=== PATIENT | female | born 1935 | race Caucasian/White ===

== ENCOUNTER 2018-05-24 08:19 | Observation (INO) ==
[2018-05-24 09:15] LABS: Hematocrit (blood only) 36.9 % (37-47); Hemoglobin 12.5 g/dL (12.0-16.0); Mean Corpuscular Hgb Conc 33.9 g/dL (32-36); Mean Corpuscular Volume 95.1 fL (80-100); Mean Platelet Volume 10.2 fL (7.4-10.4); Platelet Count 199 K/uL (130-400); RDW Coefficient of Variation 12.4 % (11.5-14.5); RDW Standard Deviation 42.7 fL (36.4-46.3); Red Blood Count 3.88 M/uL (4.2-5.4); White Blood Count 7.16 K/uL (4.8-10.8)
[2018-05-24 09:23] LABS: Albumin Level 3.8 gm/dl (3.4-5.0); BUN Creatinine Ratio 27.7 (10-20); Calcium 9.1 mg/dl (8.5-10.1); Creatinine Clr Calc Pharmacy 39.2 ml/min; Est GFR (African American) 68.5; Est GFR (Non-African American) 59.1; Potassium 3.4 mmol/L (3.5-5.1)
--- NOTE | 2018-05-24 09:28 | XRay Report ---
XR chest 2V routine CLINICAL HISTORY: Chest pain COMPARISON STUDY: No previous studies for comparison. FINDINGS: Lung volumes are normal. There is no pneumothorax or pleural effusion. Linear left basilar opacity suggests atelectasis. There is no consolidation to suggest pneumonia. There is no evidence fo r pulmonary edema. Cardiomediastinal silhouette is normal. There is a 1 cm right apical linear densit y. IMPRESSION: 1. No acute cardiopulmonary findings. 2. 1 cm right apical linear density. This may reflect scarring however a nonemergent chest CT is mirna mmended to exclude a pulmonary nodule. Electronically signed by: Tyrel Watkins M.D. 05/24/2018 9:27 AM
[2018-05-24 09:33] LABS: Albumin Globulin Ratio 1.1 (0.9-2); Bilirubin,Total 0.5 mg/dl (0.2-1); Globulin 3.5 gm/dl (2.5-4.0); Total Protein 7.3 gm/dl (6.4-8.2); Troponin I 0.036 ng/ml (0-0.045)
[2018-05-24] MEDS ORDERED: ACETAMINOPHEN 500 MG TAB PO STA (10:19)
--- NOTE | 2018-05-24 10:25 | Emergency Department Note ---
ED Visit Note I took a history and examination of the patient and coordinated the patients management with Dr. Little . : Hypertension Qualifiers: Hypertension type: unspecified Qualified Code(s): I10 - Essential (primary) hypertension
--- NOTE | 2018-05-24 11:08 | Emergency Department Note ---
Entered by Nicole Menendez acting as a scribe for Marcial Little MD History of Present Illness General Chief complaint: Chest Pain Time Seen by Provider: 05/24/18 08:24 Source: patient Mode of arrival: EMS History of Present Illness Provider complaint: chest pain Onset (ago): hour(s) 8 Location: chest (center) Radiation: back and extremity (both arms) Pain Consistency: + constant Maximum Pain Intensity: 8 Current Pain Intensity: 3 Quality: + aching Relieved By: + movement (TUMS) Associated symptoms: + other (nausea. Denies: vomiting, fevers, chills, diarrhea, blood in stool, cough, shortness of breath, swelling in legs, palpitations, abnormal taste in throat ) Treatments prior to arrival: other (TUMS, pantoprazole, aspirin) The patient is an 82 year old female who presents to the Emergency Room with complaints of constant chest pain beginning 8 hours ago. She describes this pain as an ache and rates it a 3/10 in severity currently, down from an initial 8/10 in severity. The patient notes the pain is in the center of her chest and radiates down both arms into her biceps, as well as into her back. She reports nausea. The patient denies vomiting, fevers, chills, diarrhea, blood in stool, cough, shortness of breath, swelling in legs, palpitations, or abnormal taste in throat. She states she had a very busy day yesterday, and ate pizza last night, which is unusual for her. The patient states she took TUMS, which seemed to improve her pain, as well as pantoprazole, that did not seem to relieve her pain. She arrives via EMS and was given aspirin and Zofran en route to the ED. Home Medications Home Medications Medication Instructions Recorded Confirmed Type atorvastatin 20 mg PO QPM 05/24/18 05/24/18 History cholecalciferol (vitamin D3) 1,000 unit PO DAILY 05/24/18 05/24/18 History [Vitamin D3] clopidogrel 75 mg PO DAILY 05/24/18 05/24/18 History escitalopram oxalate 10 mg PO QPM 05/24/18 05/24/18 History fexofenadine [Antoinette Allergy] 180 mg PO DAILY PRN 05/24/18 05/24/18 History fluticasone furoate [Flonase 1 spray INTRANASAL DAILY 05/24/18 05/24/18 History Sensimist] isosorbide mononitrate 30 mg PO QPM 05/24/18 05/24/18 History losartan 50 mg PO DAILY 05/24/18 05/24/18 History pantoprazole 20 mg PO DAILY PRN 05/24/18 05/24/18 History Allergies Allergy/AdvReac Type Severity Reaction Status Date / Time No Known Allergies Allergy Mild Unverified 05/24/18 09:15 Past Med/Surg History Medical History Depression (Chronic) Hemiplegia (Chronic) CKD (chronic kidney disease), stage III (Chronic) Dyslipidemia (Chronic) Hypertension (Chronic) GERD (gastroesophageal reflux disease) (Chronic) LBBB (left bundle branch block) (Chronic) History of CVA (cerebrovascular accident) (Chronic) Surgical History S/P CORONA (total abdominal hysterectomy) (Chronic) History of cataract surgery (Chronic) History of tonsillectomy (Chronic) History of nasal surgery (Chronic) History of carpal tunnel surgery of right wrist (Chronic) History of carpal tunnel surgery of left wrist (Chronic) History of sinus surgery (Resolved) Social History Preferred Language: Ukrainian Communication Ability: Effective Beliefs That Will Affect Care: None Current Living Situation: Alone Other Information That Helps Us Care for You: No Feels Safe at Home: Yes Safety Concerns: Feels Safe At This Time Smoking Status: Never smoker Hx Alcohol Use: No Hx Substance Use: No Review of Systems See HPI for pertinent positives & negatives. and A total of 10 systems reviewed and were otherwise negative Physical Exam Vital Signs Vital Signs - 24 hr 05/24/18 08:24 05/24/18 10:25 05/24/18 10:34 Temperature 36.8 C Temperature Source Oral Sepsis Recent Fever Within 48 Hours No Sepsis New/Unexplained Change in Mental Status No Sepsis Action Taken by Nursing No Action Required Pulse Rate 65 Pulse Rate [Apical] 64 Pulse Rhythm Regular Pulse Rhythm [Apical] Regular Pulse Strength [Apical] Normal Respiratory Rate 18 17 Respiratory Effort / Characteristics Non-Labored Spontaneous Non-Labored Spontaneous Non-Labored Spontaneous Respiratory Depth Normal Normal Normal Respiratory Pattern Regular Regular Regular Blood Pressure 192/80 H Blood Pressure [Left Arm] 173/98 H Blood Pressure Mean 117 Blood Pressure Mean [Left Arm] 123 Blood Pressure Position [Left Arm] Pulse Oximetry 96 95 Pulse Oximetry [Left Index Finger] Oxygen Delivery Method Room Air Room Air Room Air Oxygen Delivery Method [Left Index Finger] 05/24/18 12:10 05/24/18 12:30 05/24/18 12:58 Temperature 36.7 C Temperature Source Oral Sepsis Recent Fever Within 48 Hours Sepsis New/Unexplained Change in Mental Status Sepsis Action Taken by Nursing Pulse Rate 66 Pulse Rate [Apical] 58 L Pulse Rhythm Pulse Rhythm [Apical] Regular Pulse Strength [Apical] Normal Respiratory Rate 17 17 Respiratory Effort / Characteristics Non-Labored Spontaneous Respiratory Depth Normal Respiratory Pattern Regular Blood Pressure 169/76 H Blood Pressure [Left Arm] 177/82 H Blood Pressure Mean Blood Pressure Mean [Left Arm] 113 Blood Pressure Position [Left Arm] Lying Pulse Oximetry 93 Pulse Oximetry [Left Index Finger] 97 Oxygen Delivery Method Room Air Room Air Oxygen Delivery Method [Left Index Finger] Room Air GENERAL: Patient is in no acute distress. HEENT: No acute trauma, normocephalic atraumatic, mucous membranes moist, no nasal congestion, no scleral icterus. NECK: No stridor, no adenopathy, no meningismus, trachea is midline. LUNGS: Clear to auscultation bilaterally, no wheeze, no rhonchi, breath sounds equal. HEART: Bradycardic, 2/6 systolic murmur, regular rhythm CHEST: Tender over left anterior chest wall. No rash. ABDOMEN: Soft, nontender, bowel sounds positive, no hernias, no peritonitis. EXTREMITIES: No cyanosis or edema, full range of motion of all the joints without pain or difficulty, no signs for acute trauma. NEUROLOGIC: Oriented x 3, no acute motor or sensory deficits, no focal weakness. SKIN: No rash, no jaundice, no diaphoresis. Course 0823: Past medical records reviewed. The patient was evaluated in room C4 by Dr. Sánchez, the resident under by direction, and a complete history and physical examination were performed. 0901: I evaluated the patient in room C4, and a complete history and physical examination were performed. 0958: Upon reevaluation, the patient is resting. I discussed test results. They verbalized agreement with the treatment plan. 1023: I reviewed the patient's case with Kesha Carrasco PA-C, [facility]. She will evaluate the patient for further management. Consultations Consultation #1: Kesha Carrasco PA-C, [facility] hospitalist. Time: 10:23 Administered Medications Clopidogrel Bisulfate (Plavix) 75 mg PO DAILY SVEN Stop: 06/23/18 12:59 Last Admin: 05/24/18 13:04 Dose: 75 mg Documented by: [id number] Losartan Potassium (Cozaar) 50 mg PO DAILY VSEN Stop: 06/23/18 12:41 Last Admin: 05/24/18 13:05 Dose: 50 mg Documented by: [id number] Pantoprazole Sodium (Protonix) 40 mg PO DAILY SVEN Stop: 06/23/18 12:59 Last Admin: 05/24/18 13:05 Dose: 40 mg Documented by: [id number] Discontinued Medications Acetaminophen (Tylenol) 500 mg PO NOW STA Stop: 05/24/18 10:20 Last Admin: 05/24/18 10:24 Dose: 500 mg Documented by: [id number] Potassium Chloride (Klor-Con M20) 40 meq PO NOW STA Stop: 05/24/18 13:37 Last Admin: 05/24/18 14:01 Dose: 40 meq Documented by: [id number] Medical Decision Making Differential Diagnosis Differential Diagnosis includes: musculoskeletal pain, reflux, angina, IN, pneumonia, pneumothorax, PE, anemia, aortic dissection Medical Records Attestation: I reviewed the patient's medical records. Home Medications Current Medication List: was personally reviewed by me Laboratory Data Attestation: I reviewed the patient's lab results. Result diagrams: 05/24/18 08:30 05/24/18 08:30 Lab Results 05/24/18 05/24/18 05/24/18 Range/Units 08:30 08:30 13:52 WBC 7.16 (4.8-10.8) K/uL RBC 3.88 L (4.2-5.4) M/uL Hgb 12.5 (12.0-16.0) g/dL Hct 36.9 L (37-47) % MCV 95.1 (80-100) fL MCH 32.2 (25-34) pg MCHC 33.9 (32-36) g/dL RDW Std Deviation 42.7 (36.4-46.3) fL RDW Coeff of Lukas 12.4 (11.5-14.5) % Plt Count 199 (130-400) K/uL MPV 10.2 (7.4-10.4) fL PT 10.5 (9.0-12.0) Seconds INR 1.0 (0.9-1.1) Sodium 140 (136-145) mmol/L Potassium 3.4 L (3.5-5.1) mmol/L Chloride 106 (98-107) mmol/L Carbon Dioxide 31 (21-32) mmol/L Anion Gap 3.0 (3-11) BUN 25 H (7-18) mg/dl Creatinine 0.90 (0.6-1.2) mg/dl Est Cr Clr Drug Dosing 39.2 ml/min Est GFR ( Amer) 68.5 Est GFR (Non-Af Amer) 59.1 BUN/Creatinine Ratio 27.7 H (10-20) Glucose 104 H (70-99) mg/dl Calcium 9.1 (8.5-10.1) mg/dl Total Bilirubin 0.5 (0.2-1) mg/dl AST 25 (15-37) U/L ALT 23 (12-78) U/L Alkaline Phosphatase 100 (45-117) U/L Troponin I 0.036 (0-0.045) ng/ml Total Protein 7.3 (6.4-8.2) gm/dl Albumin 3.8 (3.4-5.0) gm/dl Globulin 3.5 (2.5-4.0) gm/dl Albumin/Globulin Ratio 1.1 (0.9-2) TSH 4.970 H (0.300-4.500) uIu/ml Imaging Data Radiologist's Impression: Radiology results as stated below per my review and the radiologist's interpretation: XR chest 2V routine CLINICAL HISTORY: Chest pain COMPARISON STUDY: No previous studies for comparison. FINDINGS: Lung volumes are normal. There is no pneumothorax or pleural effusion. Linear left basilar opacity suggests atelectasis. There is no consolidation to suggest pneumonia. There is no evidence for pulmonary edema. Cardiomediastinal silhouette is normal. There is a 1 cm right apical linear density. IMPRESSION: 1. No acute cardiopulmonary findings. 2. 1 cm right apical linear density. This may reflect scarring however a nonemergent chest CT is recommended to exclude a pulmonary nodule. Electronically signed by: Tyrel Watkins M.D. 05/24/2018 9:27 AM ECG Data Attestation: I personally reviewed and interpreted this ECG as follows: Indication: chest pain Rate (beats per minute): 59 Rhythm: sinus bradycardia Findings: + LBBB; no PVC and no ST elevation Comparison ECG Date: from (06/01/10) Change: the following changes noted (LBBB now present) Blood Pressure Blood Pressure Findings: Elevated blood pressure Blood Pressure Disposition: further management by hospitalist MDM Narrative There is no leukocytosis or concerning anemia. No significant electrolyte abnormality or kidney failure. No hepatitis. TSH mildly elevated at 4.9. EKG shows a sinus rhythm, no acute ischemia. Cardiac enzyme testing x1 is not consistent with acute cardiac injury. Chest film does not show mediastinal widening, pneumonia or pneumothorax. On exam, the patient did have some left- sided reproducible chest pain. The patient had received aspirin prior to arrival. She was given some Tylenol for additional pain control. The patient presents with chest pain which went to her shoulders. The pain is minimal currently. She does have a higher heart score. I do think further cardiac workup is warranted. We did discuss the case with case management and the on-call hospitalist. Hospitalization was felt warranted in this situation. Patient is aware of all her findings. Impression & Plan Precordial chest pain, Hypertension Discharge Plan Visit Data *Final* Discharge Date/Time: 05/24/18 12:10 Chief Complaint: Chest Pain ED Provider: Marcial Little ED Midlevel Provider: Demond Sánchez Discharge Problem: Precordial chest pain, Hypertension Patient Disposition: Admitted As Inpatient Discharge Instructions Interventions: ED Discharge Assessment Last Done: 05/24/18 12:10 Discharge Problem: Hypertension Qualifiers: Hypertension type: unspecified Qualified Code(s): I10 - Essential (primary) hypertension The scribe's documentation has been prepared under my direction and personally reviewed by me in its entirety. I confirm that the note above accurately reflects all work, treatment, procedures, and medical decision making performed by me.
[2018-05-24] MEDS ORDERED: LOSARTAN POTASSIUM 50 MG TAB PO SCH (12:42)
[2018-05-24] MEDS ORDERED: ACETAMINOPHEN 325 MG TAB PO PRN (12:42)
[2018-05-24] MEDS ORDERED: NITROGLYCERIN SL 0.4 MG/TAB TAB SL PRN (12:42)
[2018-05-24] MEDS: CLOPIDOGREL BISULFATE 75 MG TAB PO SCH (13:04)
[2018-05-24] MEDS: PANTOprazole 40 MG TAB PO SCH (13:05)
[2018-05-24] MEDS ORDERED: POTASSIUM CHLORIDE 20 MEQ TABCR PO STA (13:36)
--- NOTE | 2018-05-24 13:50 | History & Physical Report ---
Date of Service May 24, 2018 Assessment & Plan (1) Chest pain: (2) LBBB (left bundle branch block): -Admit to telemetry -Patient presenting from home with reports of left-sided chest pain that began throughout the night -By history, discomfort seems to be secondary to GERD/musculoskeletal/ hypertensive urgency -In the ED, initial troponin negative, EKG demonstrates unchanged LBBB -Continue cycle cardiac enzymes, check resting echo -Treat underlying suspected GERD and elevated BP -Continue Plavix, statin, nitrate, ARB; beta-claudia likely contraindicated secondary to bradycardia (3) Hypertensive urgency: -Upon arrival to the ED, patient's BP 192/80 -Likely secondary to missed medications this morning -Continue home doses of isosorbide and losartan for now, making adjustments as needed (4) GERD (gastroesophageal reflux disease): -Patient utilizes PPI on a as needed basis -Will order PPI daily due to increased symptoms (5) History of CVA (cerebrovascular accident): -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 Patient reports her symptoms began around 1:00 this morning. Patient reports she felt as though she had indigestion. Of note, patient says she had 3 large glasses of iced tea yesterday, pizza for dinner, and a steak sandwich later in the evening. When her symptoms began, she took a dose of Protonix which did not change her symptoms. She describes the pain as being located in left side of her chest and describes the pain as a pressure type feeling. There is radiation of the pain into her left shoulder and upper arm. She reports pain was intermittent and would come and go on its own. No specific causative factors. She reports associated shortness of breath and nausea. No palpitations. She denies diaphoresis. No lightheadedness, dizziness, syncopal events. Reports she otherwise been feeling well recently. No fevers or chills. She denies abdominal pain, vomiting, diarrhea. No urinary symptoms. In the ED, patient's initial troponin is negative and EKG shows a chronic left bundle branch block. She is hypertensive with BP 192/80. She was given a dose of Tylenol. At the time my exam, patient reports she is chest pain-free. Allergies Allergy/AdvReac Type Severity Reaction Status Date / Time No Known Allergies Allergy Mild Unverified 05/24/18 09:15 Home Medications Home Medications Medication Instructions Recorded Confirmed Type atorvastatin 20 mg PO QPM 05/24/18 05/24/18 History cholecalciferol (vitamin D3) 1,000 unit PO DAILY 05/24/18 05/24/18 History [Vitamin D3] clopidogrel 75 mg PO DAILY 05/24/18 05/24/18 History escitalopram oxalate 10 mg PO QPM 05/24/18 05/24/18 History fexofenadine [Antoinette Allergy] 180 mg PO DAILY PRN 05/24/18 05/24/18 History fluticasone furoate [Flonase 1 spray INTRANASAL DAILY 05/24/18 05/24/18 History Sensimist] isosorbide mononitrate 30 mg PO QPM 05/24/18 05/24/18 History losartan 50 mg PO DAILY 05/24/18 05/24/18 History pantoprazole 20 mg PO DAILY PRN 05/24/18 05/24/18 History Past Med/Surg History Medical History Depression (Chronic) Hemiplegia (Chronic) CKD (chronic kidney disease), stage III (Chronic) Dyslipidemia (Chronic) Hypertension (Chronic) GERD (gastroesophageal reflux disease) (Chronic) LBBB (left bundle branch block) (Chronic) History of CVA (cerebrovascular accident) (Chronic) Surgical History S/P CORONA (total abdominal hysterectomy) (Chronic) History of cataract surgery (Chronic) History of tonsillectomy (Chronic) History of nasal surgery (Chronic) History of carpal tunnel surgery of right wrist (Chronic) History of carpal tunnel surgery of left wrist (Chronic) History of sinus surgery (Resolved) Social History Preferred Language: Belarusian Communication Ability: Effective Beliefs That Will Affect Care: None Current Living Situation: Alone Other Information That Helps Us Care for You: No Feels Safe at Home: Yes Safety Concerns: Feels Safe At This Time Smoking Status: Never smoker Hx Alcohol Use: No Hx Substance Use: No Review of Systems ROS per HPI, all other systems reviewed and negative Physical Exam Vital Signs (Past 24 Hours): Last Vital Signs Temp 36.7 C 05/24/18 12:30 Pulse 58 L 05/24/18 12:30 Resp 17 05/24/18 12:30 BP 177/82 H 05/24/18 12:30 Pulse Ox 97 05/24/18 12:58 Constitutional: WD/WN, vitals as above Eyes: PERRL, conjunctivae normal, anicteric sclerae ENMT: external ear and nose normal, oropharynx normal Respiratory: normal respiratory effort, lungs clear to auscultation Cardiovascular: Rate/Rhythm: regular rate and regular rhythm Vessels: normal peripheral pulses Extremities: + edema (Trace edema BLE) Gastrointestinal (Abdomen): normal bowel sounds, soft, nontender, no hepatosplenomegaly Musculoskeletal: Extremities: no cyanosis and no clubbing Right upper extremity paralysis from prior CVA, strength 5/5 left upper extremity and bilateral lower extremities Skin: no rashes, warm and dry Neurologic: PERRL, EOMI, accommodation nl, no face palsy, no dysarthria Psychiatric: A+Ox3, euthymic affect Results & Data Laboratory Results Laboratory Last Values WBC 7.16 K/uL (4.8-10.8) 05/24/18 08:30 RBC 3.88 M/uL (4.2-5.4) L 05/24/18 08:30 Hgb 12.5 g/dL (12.0-16.0) 05/24/18 08:30 Hct 36.9 % (37-47) L 05/24/18 08:30 MCV 95.1 fL (80-100) 05/24/18 08:30 MCH 32.2 pg (25-34) 05/24/18 08:30 MCHC 33.9 g/dL (32-36) 05/24/18 08:30 RDW Std Deviation 42.7 fL (36.4-46.3) 05/24/18 08:30 RDW Coeff of Lukas 12.4 % (11.5-14.5) 05/24/18 08:30 Plt Count 199 K/uL (130-400) 05/24/18 08:30 MPV 10.2 fL (7.4-10.4) 05/24/18 08:30 Sodium 140 mmol/L (136-145) 05/24/18 08:30 Potassium 3.4 mmol/L (3.5-5.1) L 05/24/18 08:30 Chloride 106 mmol/L (98-107) 05/24/18 08:30 Carbon Dioxide 31 mmol/L (21-32) 05/24/18 08:30 Anion Gap 3.0 (3-11) 05/24/18 08:30 BUN 25 mg/dl (7-18) H 05/24/18 08:30 Creatinine 0.90 mg/dl (0.6-1.2) 05/24/18 08:30 Est Cr Clr Drug Dosing 39.2 ml/min 05/24/18 08:30 Est GFR ( Amer) 68.5 05/24/18 08:30 Est GFR (Non-Af Amer) 59.1 05/24/18 08:30 BUN/Creatinine Ratio 27.7 (10-20) H 05/24/18 08:30 Glucose 104 mg/dl (70-99) H 05/24/18 08:30 Calcium 9.1 mg/dl (8.5-10.1) 05/24/18 08:30 Total Bilirubin 0.5 mg/dl (0.2-1) 05/24/18 08:30 AST 25 U/L (15-37) 05/24/18 08:30 ALT 23 U/L (12-78) 05/24/18 08:30 Alkaline Phosphatase 100 U/L (45-117) 05/24/18 08:30 Troponin I 0.036 ng/ml (0-0.045) 05/24/18 08:30 Total Protein 7.3 gm/dl (6.4-8.2) 05/24/18 08:30 Albumin 3.8 gm/dl (3.4-5.0) 05/24/18 08:30 Globulin 3.5 gm/dl (2.5-4.0) 05/24/18 08:30 Albumin/Globulin Ratio 1.1 (0.9-2) 05/24/18 08:30 TSH 4.970 uIu/ml (0.300-4.500) H 05/24/18 08:30 Diagnostic Findings CXR IMPRESSION: 1. No acute cardiopulmonary findings. 2. 1 cm right apical linear density. This may reflect scarring however a nonemergent chest CT is recommended to exclude a pulmonary nodule. Code Status & VTE Plan VTE Prophylaxis Plan VTE Prophylaxis will be ordered: Yes Supervising Physician Co-Signing Physician Notes I have seen and examined the patient with nurse practitioner and agree with the initial assessment and plan as documented by nurse practitioner and would like to update the plans: That this is an 85 year old Female patient who's initial impression of chest pain was thought to be atypical, and perhaps possibly related to indigestion. However, patient had elevation of 2nd troponin from 0.036 to 0.245 and will consult cardiology service for further input. Patient already had echocardiogram completed earlier today prior to the resulting 2nd troponin. Patient is not in respiratory distress and reports that the primary pain which has been located central and below the sternum to be acting like it comes and goes. Patient's initial high blood pressure has normalized and possible that initial hypertensive urgency could have been from missed home medications. Possibly that Elevated Troponins are from initial hypertension. continue to trend troponins and telemetry monitoring Will defer systemic anticoagulation at this time. The repeat EKGs continues to show same left bundle branch block as seen previously. Await cardiology recommendations Continue other health management as described by nurse practioner Patient's code status is DO NOT INTUBATE, but she allows for chest compression or defibrillation in emergencies Patient was admitted by Dr. Reich and nurse practitioner and will be continued to be managed by colleague Dr. Dupree
[2018-05-24 14:20] LABS: Prothrombin Time 10.5 Seconds (9.0-12.0)
[2018-05-24 14:47] LABS: Troponin I 0.245 ng/ml (0-0.045)
--- NOTE | 2018-05-24 15:21 | CT Scan Report ---
CT chest wo con CT DOSE: 277.58 mGy.cm HISTORY: Pulmonary nodule f/u possible pulmonary nodule TECHNIQUE: Multiaxial CT images of the chest were performed without contrast. A dose lowering techni que was utilized adhering to the principles of ALARA. COMPARISON: Chest series 05/24/2018 FINDINGS: Mild fibrotic scarring of the pulmonary apices bilaterally. This appears to account for the findings on routine chest series. No significant apical or parenchymal nodularity is appreciated. Mild bibasilar atelectatic change. No well-defined focal infiltrate. Moderate atelectatic change thor acic aorta. No significant hilar or mediastinal adenopathy. IMPRESSION: 1. No evidence for significant pulmonary nodularity. 2. Mild scattered fibrotic and basilar atelectatic change. 3. Incidental note is made of mild gallbladder distention The above report was generated using voice recognition software. It may contain grammatical, syntax or spelling errors. Electronically signed by: Laron Ahumada M.D. 05/24/2018 3:19 PM
--- NOTE | 2018-05-24 17:06 | Cardiology Consultation ---
Date of Consultation May 24, 2018 Assessment & Plan (1) Chest pain: Her chest pain as described is somewhat atypical and could be related to GERD. Her second troponin was borderline elevated. I would recommend that we do additional troponins. I will reevaluate her in the morning. Her breakfast will be held and we will consider either conservative stress testing versus an invasive approach after the additional troponins are reviewed. I would hold off on heparin for now unless her third troponin comes back in its increased again. (2) LBBB (left bundle branch block): (3) History of CVA (cerebrovascular accident): History of Present Illness Attending Physician: Pablito Abdul MD History of Present Illness This is an 82-year-old female who I last saw in our clinic in 2011. At that time she presented with a left bundle branch block that was newly discovered. She underwent a stress test that was negative. She was then lost to follow-up. I do have records through care everywhere from [facility] in [place]. At that time she was seen for preoperative clearance and risk assessment due to her left bundle branch block. At some point in 2015 she did have a CVA. No other significant cardiovascular history. She was in her usual state of health yesterday. She did a lot of traveling and admits that she did not eat well yesterday. Before going to bed she had a steak sandwich and immediately did not feel well. She has a long history of reflux. Through the night she had chest burning consistent with her previous episodes of GERD. In the morning she felt poorly and decided to come to the emergency department. She has been admitted and her chest discomfort has resolved and she is eating dinner tonight. Her EKG shows her left bundle branch block. Cardiac troponin are borderline elevated at 0.24. Allergies Allergy/AdvReac Type Severity Reaction Status Date / Time No Known Allergies Allergy Mild Unverified 05/24/18 09:15 Home Medications Home Medications Medication Instructions Recorded Confirmed Type atorvastatin 20 mg PO QPM 05/24/18 05/24/18 History cholecalciferol (vitamin D3) 1,000 unit PO DAILY 05/24/18 05/24/18 History [Vitamin D3] clopidogrel 75 mg PO DAILY 05/24/18 05/24/18 History escitalopram oxalate 10 mg PO QPM 05/24/18 05/24/18 History fexofenadine [Antoinette Allergy] 180 mg PO DAILY PRN 05/24/18 05/24/18 History fluticasone furoate [Flonase 1 spray INTRANASAL DAILY 05/24/18 05/24/18 History Sensimist] isosorbide mononitrate 30 mg PO QPM 05/24/18 05/24/18 History losartan 50 mg PO DAILY 05/24/18 05/24/18 History pantoprazole 20 mg PO DAILY PRN 05/24/18 05/24/18 History Patient History Medical History Depression (Chronic) Hemiplegia (Chronic) CKD (chronic kidney disease), stage III (Chronic) Dyslipidemia (Chronic) Hypertension (Chronic) GERD (gastroesophageal reflux disease) (Chronic) LBBB (left bundle branch block) (Chronic) History of CVA (cerebrovascular accident) (Chronic) Surgical History S/P [place] (total abdominal hysterectomy) (Chronic) History of cataract surgery (Chronic) History of tonsillectomy (Chronic) History of nasal surgery (Chronic) History of carpal tunnel surgery of right wrist (Chronic) History of carpal tunnel surgery of left wrist (Chronic) History of sinus surgery (Resolved) Family History Other Family history non-contributory Social History Preferred Language: Occitan Communication Ability: Effective Beliefs That Will Affect Care: None Current Living Situation: Alone Other Information That Helps Us Care for You: No Feels Safe at Home: Yes Safety Concerns: Feels Safe At This Time Smoking Status: Never smoker Hx Alcohol Use: No Hx Substance Use: No Review of Systems Review of Systems: See HPI for pertinent positives. All other 10 point review of systems are negative. Physical Exam Vital Signs (Past 24 Hours): Last Vital Signs Temp 36.4 C L 05/24/18 15:22 Pulse 65 05/24/18 15:22 Resp 16 05/24/18 15:22 BP 134/59 L 05/24/18 15:22 Pulse Ox 92 05/24/18 15:22 Physical Exam: General: no acute distress and stated age Head: normocephalic, no masses, lesions, tenderness or abnormalities Eyes: conjunctiva are pink and non-injected, sclera clear Neck: supple, no adenopathy, no bruits, normal jugular venous pulse, no hepatojugular reflux Chest: normal shape and normal respiratory effort Lungs: clear to auscultation and percussion Cardiac Exam: - regular rate & rhythm, no murmurs gallops or rubs - normal S1, normal S2 Pulses: 2(+) throughout Abdomen: abdomen soft, non-tender, no abnormal masses and no hepatosplenomegaly Musculoskeletal: no gait disturbance, no joint inflammation, no deforming arthritis Extremities: no edema and no cyanosis Neuro: grossly normal exam Results & Data Laboratory Results Laboratory Results - last 24 hr 05/24/18 05/24/18 05/24/18 08:30 08:30 13:52 WBC 7.16 RBC 3.88 L Hgb 12.5 Hct 36.9 L MCV 95.1 MCH 32.2 MCHC 33.9 RDW Std Deviation 42.7 RDW Coeff of Lukas 12.4 Plt Count 199 MPV 10.2 PT INR Sodium 140 Potassium 3.4 L Chloride 106 Carbon Dioxide 31 Anion Gap 3.0 BUN 25 H Creatinine 0.90 Est Cr Clr Drug Dosing 39.2 Est GFR ( Amer) 68.5 Est GFR (Non-Af Amer) 59.1 BUN/Creatinine Ratio 27.7 H Glucose 104 H Calcium 9.1 Magnesium 2.0 Total Bilirubin 0.5 AST 25 ALT 23 Alkaline Phosphatase 100 Troponin I 0.036 0.245 H* Total Protein 7.3 Albumin 3.8 Globulin 3.5 Albumin/Globulin Ratio 1.1 TSH 4.970 H Thyroxine (T4) 05/24/18 05/24/18 13:52 13:52 WBC RBC Hgb Hct MCV MCH MCHC RDW Std Deviation RDW Coeff of Lukas Plt Count MPV PT 10.5 INR 1.0 Sodium Potassium Chloride Carbon Dioxide Anion Gap BUN Creatinine Est Cr Clr Drug Dosing Est GFR ( Amer) Est GFR (Non-Af Amer) BUN/Creatinine Ratio Glucose Calcium Magnesium Total Bilirubin AST ALT Alkaline Phosphatase Troponin I Total Protein Albumin Globulin Albumin/Globulin Ratio TSH Thyroxine (T4) 8.1 Medications Administered Current Inpatient Medications Acetaminophen (Tylenol) 650 mg PO Q4H PRN PRN Reason: Pain or Fever Stop: 06/23/18 12:41 Atorvastatin Calcium (Lipitor) 20 mg PO QPM [facility] Stop: 06/23/18 20:59 Clopidogrel Bisulfate (Plavix) 75 mg PO DAILY [facility] Stop: 06/23/18 12:59 Last Admin: 05/24/18 13:04 Dose: 75 mg Documented by: Escitalopram Oxalate (Lexapro) 10 mg PO QPM [facility] Stop: 06/23/18 20:59 Heparin Sodium (Porcine) (Heparin Sodium (Porcine)) 5,000 units SQ Q8 [facility] Stop: 06/23/18 21:59 Isosorbide Mononitrate (Imdur Extended Rel) 30 mg PO QPM [facility] Stop: 06/23/18 20:59 Losartan Potassium (Cozaar) 50 mg PO DAILY [facility] Stop: 06/23/18 12:41 Last Admin: 05/24/18 13:05 Dose: 50 mg Documented by: Nitroglycerin (Nitrostat) 0.4 mg SL UD PRN PRN Reason: Chest Pain Stop: 06/23/18 12:41 Pantoprazole Sodium (Protonix) 40 mg PO DAILY [facility] Stop: 06/23/18 12:59 Last Admin: 05/24/18 13:05 Dose: 40 mg Documented by: Vitamin D (Vitamin D3) 1,000 units PO DAILY [facility] Stop: 06/24/18 08:59
[2018-05-24] MEDS ORDERED: Heparin Adult STANDARD Wt-Based Dextrose 5% 25,000 units/500 mL IV SCH (20:00)
[2018-05-24] MEDS ORDERED: HEPARIN IV BOLUS 4,000 UNITS in SYRINGE 0 ML IV ONE (20:15)
[2018-05-24] MEDS: ESCITALOPRAM OXALATE 10 MG TAB PO SCH (20:38)
[2018-05-24] MEDS: ATORVASTATIN 20 MG TAB PO SCH (20:38)
[2018-05-24] MEDS: ISOSORBIDE MONO EXTENDED REL 30 MG TABCR PO SCH (20:39)
[2018-05-24 20:48] LABS: Partial Thromboplastin Time 26.5 Seconds (21.0-31.0)
[2018-05-24] MEDS ORDERED: HEPARIN SOD 5,000 UNIT/0.5 ML VIAL SQ SCH (22:00)
[2018-05-25] MEDS: SENNA 8.6 MG TAB PO SCH ×2 (00:45→20:14)
[2018-05-25 03:22] LABS: Hematocrit (blood only) 35.2 % (37-47); Hemoglobin 11.6 g/dL (12.0-16.0); Mean Platelet Volume 10.1 fL (7.4-10.4); Platelet Count 192 K/uL (130-400); RDW Coefficient of Variation 12.6 % (11.5-14.5); RDW Standard Deviation 44.6 fL (36.4-46.3); Red Blood Count 3.63 M/uL (4.2-5.4); White Blood Count 7.42 K/uL (4.8-10.8)
[2018-05-25 03:40] LABS: Calcium 8.6 mg/dl (8.5-10.1); Creatinine Clr Calc Pharmacy 24.3 ml/min; Est GFR (African American) 38.5; Est GFR (Non-African American) 33.2; Potassium 4.2 mmol/L (3.5-5.1); Troponin I 5.09 ng/ml (0-0.045)
[2018-05-25 03:47] LABS: Partial Thromboplastin Ratio > 5.1
[2018-05-25 03:51] LABS: Partial Thromboplastin Time > 139.0 Seconds (21.0-31.0)
[2018-05-25 04:54] LABS: Partial Thromboplastin Time 108.5 Seconds (21.0-31.0)
[2018-05-25 06:12] LABS: Partial Thromboplastin Ratio 2.2
[2018-05-25 06:21] LABS: Partial Thromboplastin Time 60.7 Seconds (21.0-31.0)
[2018-05-25] MEDS ORDERED: SODIUM CHLORIDE 0.9% 1000ML 1,000 ML IV ONE (08:25)
--- NOTE | 2018-05-25 08:38 | Cardiology Progress Note ---
Date of Service May 25, 2018 Assessment & Plan (1) NSTEMI (non-ST elevated myocardial infarction): The patient's troponin have peaked at 5. I discussed the option of a cardiac catheterization with her. I explained the risk benefit and intent of the procedure including the potential for a catheter-based intervention. Patient is willing to proceed and we will start an IV now to hydrate her. The cardiac catheterization will be performed later this morning. (2) Ischemic cardiomyopathy: Subjective Patient had an uneventful night no additional chest pain. Her cardiac markers have elevated and her troponin is now peaked at 5. Physical Exam Vital Signs (Past 24 Hours): Last Vital Signs Temp 36.8 C 05/25/18 07:41 Pulse 55 L 05/25/18 07:41 Resp 14 05/25/18 07:41 BP 151/66 H 05/25/18 07:41 Pulse Ox 96 05/25/18 07:41 Physical Exam: General: no acute distress and stated age Head: normocephalic, no masses, lesions, tenderness or abnormalities Eyes: conjunctiva are pink and non-injected, sclera clear Neck: supple, no adenopathy, no bruits, normal jugular venous pulse, no hepatojugular reflux Chest: normal shape and normal respiratory effort Lungs: clear to auscultation and percussion Cardiac Exam: - regular rate & rhythm, no murmurs gallops or rubs - normal S1, normal S2 Pulses: 2(+) throughout Abdomen: abdomen soft, non-tender, no abnormal masses and no hepatosplenomegaly Musculoskeletal: no gait disturbance, no joint inflammation, no deforming arthritis Extremities: no edema and no cyanosis Neuro: grossly normal exam Results & Data Laboratory Results Laboratory Results - last 24 hr 05/24/18 05/24/18 05/24/18 08:30 08:30 13:52 WBC 7.16 RBC 3.88 L Hgb 12.5 Hct 36.9 L MCV 95.1 MCH 32.2 MCHC 33.9 RDW Std Deviation 42.7 RDW Coeff of Lukas 12.4 Plt Count 199 MPV 10.2 PT INR APTT PTT Ratio Sodium 140 Potassium 3.4 L Chloride 106 Carbon Dioxide 31 Anion Gap 3.0 BUN 25 H Creatinine 0.90 Est Cr Clr Drug Dosing 39.2 Est GFR ( Amer) 68.5 Est GFR (Non-Af Amer) 59.1 BUN/Creatinine Ratio 27.7 H Glucose 104 H Calcium 9.1 Magnesium 2.0 Total Bilirubin 0.5 AST 25 ALT 23 Alkaline Phosphatase 100 Troponin I 0.036 0.245 H* Total Protein 7.3 Albumin 3.8 Globulin 3.5 Albumin/Globulin Ratio 1.1 TSH 4.970 H Thyroxine (T4) 05/24/18 05/24/18 05/24/18 13:52 13:52 17:26 WBC RBC Hgb Hct MCV MCH MCHC RDW Std Deviation RDW Coeff of Lukas Plt Count MPV PT 10.5 INR 1.0 APTT PTT Ratio Sodium Potassium Chloride Carbon Dioxide Anion Gap BUN Creatinine Est Cr Clr Drug Dosing Est GFR ( Amer) Est GFR (Non-Af Amer) BUN/Creatinine Ratio Glucose Calcium Magnesium Total Bilirubin AST ALT Alkaline Phosphatase Troponin I 1.060 H* Total Protein Albumin Globulin Albumin/Globulin Ratio TSH Thyroxine (T4) 8.1 05/24/18 05/24/18 05/25/18 20:21 20:21 02:36 WBC 7.42 RBC 3.63 L Hgb 11.6 L Hct 35.2 L MCV 97.0 MCH 32.0 MCHC 33.0 RDW Std Deviation 44.6 RDW Coeff of Lukas 12.6 Plt Count 192 MPV 10.1 PT INR APTT 26.5 PTT Ratio 1.0 Sodium Potassium Chloride Carbon Dioxide Anion Gap BUN Creatinine Est Cr Clr Drug Dosing Est GFR ( Amer) Est GFR (Non-Af Amer) BUN/Creatinine Ratio Glucose Calcium Magnesium Total Bilirubin AST ALT Alkaline Phosphatase Troponin I 2.520 H* Total Protein Albumin Globulin Albumin/Globulin Ratio TSH Thyroxine (T4) 05/25/18 05/25/18 05/25/18 02:36 02:36 04:21 WBC RBC Hgb Hct MCV MCH MCHC RDW Std Deviation RDW Coeff of Lukas Plt Count MPV PT INR APTT > 139.0 H* 108.5 H* PTT Ratio > 5.1 4.0 Sodium 139 Potassium 4.2 D Chloride 108 H Carbon Dioxide 28 Anion Gap 3.0 BUN 35 H Creatinine 1.45 H D Est Cr Clr Drug Dosing 24.3 Est GFR ( Amer) 38.5 Est GFR (Non-Af Amer) 33.2 BUN/Creatinine Ratio 24.0 H Glucose 105 H Calcium 8.6 Magnesium Total Bilirubin AST ALT Alkaline Phosphatase Troponin I 5.090 H* Total Protein Albumin Globulin Albumin/Globulin Ratio TSH Thyroxine (T4) 05/25/18 05:26 WBC RBC Hgb Hct MCV MCH MCHC RDW Std Deviation RDW Coeff of Lukas Plt Count MPV PT INR APTT 60.7 H* PTT Ratio 2.2 Sodium Potassium Chloride Carbon Dioxide Anion Gap BUN Creatinine Est Cr Clr Drug Dosing Est GFR ( Amer) Est GFR (Non-Af Amer) BUN/Creatinine Ratio Glucose Calcium Magnesium Total Bilirubin AST ALT Alkaline Phosphatase Troponin I Total Protein Albumin Globulin Albumin/Globulin Ratio TSH Thyroxine (T4) Medications Administered Current Inpatient Medications Acetaminophen (Tylenol) 650 mg PO Q4H PRN PRN Reason: Pain or Fever Stop: 06/23/18 12:41 Atorvastatin Calcium (Lipitor) 20 mg PO QPM [facility] Stop: 06/23/18 20:59 Last Admin: 05/24/18 20:38 Dose: 20 mg Documented by: Clopidogrel Bisulfate (Plavix) 75 mg PO DAILY [facility] Stop: 06/23/18 12:59 Last Admin: 05/24/18 13:04 Dose: 75 mg Documented by: Escitalopram Oxalate (Lexapro) 10 mg PO QPM [facility] Stop: 06/23/18 20:59 Last Admin: 05/24/18 20:38 Dose: 10 mg Documented by: Heparin Sodium/Dextrose (Heparin Sodium/Dextrose) 25,000 units in 500 mls @ 17 mls/hr IV .Q24H [facility]EN; Protocol Stop: 06/23/18 19:59 Last Titration: 05/25/18 07:32 Dose: 850 units/hr, 17 mls/hr Documented by: Sodium Chloride (Nss 1000ml) 1,000 mls @ 75 mls/hr IV .[id number] ONE Stop: 05/25/18 21:44 Sodium Chloride (Nss 1000ml) 1,000 mls @ 1 mls/hr IV .Q24H [facility] Stop: 06/24/18 08:44 Isosorbide Mononitrate (Imdur Extended Rel) 30 mg PO QPM [facility] Stop: 06/23/18 20:59 Last Admin: 05/24/18 20:39 Dose: 30 mg Documented by: Losartan Potassium (Cozaar) 50 mg PO DAILY [facility] Stop: 06/23/18 12:41 Last Admin: 05/24/18 13:05 Dose: 50 mg Documented by: Nitroglycerin (Nitrostat) 0.4 mg [facility] PRN PRN Reason: Chest Pain Stop: 06/23/18 12:41 Pantoprazole Sodium (Protonix) 40 mg PO DAILY [facility] Stop: 06/23/18 12:59 Last Admin: 05/24/18 13:05 Dose: 40 mg Documented by: Sennosides (Senokot) 17.2 mg PO HS [facility] Stop: 06/23/18 23:29 Last Admin: 05/25/18 00:45 Dose: 17.2 mg Documented by: Vitamin D (Vitamin D3) 1,000 units PO DAILY [facility] Stop: 06/24/18 08:59
[2018-05-25] MEDS ORDERED: SODIUM CHLORIDE 0.9% 1000ML 1,000 ML IV SCH (09:30)
[2018-05-25] MEDS ORDERED: MIDAZOLAM HCL 1 MG/ML 2ML VIAL ONE (10:53)
[2018-05-25] MEDS ORDERED: HEPARIN (PORCINE) 1000 UNIT/ML 10 ML (CATH LAB USE ONLY) ONE (10:53)
[2018-05-25] MEDS ORDERED: NITROGLYCERIN/D5W 100MCG/ML 20ML SYR ONE (10:53)
[2018-05-25] MEDS ORDERED: fentaNYL citrate 100 MCG/2 ML VIAL ONE (10:53)
[2018-05-25] MEDS ORDERED: NiCARDipine HCL INJ 2.5 MG/ML 10 ML AMP ONE (10:53)
--- NOTE | 2018-05-25 12:18 | Cardiac Catheterization ---
Date of Service May 25, 2018 Cardiac Cath Report Cardiac Cath Report Procedure: 1. Coronary angiography History: This is an elderly 82-year-old female who presented with symptoms that she thought was related to her esophageal reflux. Her cardiac troponins however elevated and peaked at 5. Procedure summary: After informed consent was obtained patient was taken the cardiac catheterization lab where she was prepped and draped in the usual manner for right transfemoral approach. Preformed 5 Kiswahili diagnostic catheters were utilized for the coronary angiograms. Following the procedure and arteriogram of the femoral artery indicated the substantial band into the pelvis. A minx device was attempted but would not advance beyond the band and therefore manual pressure was held after sheath removal. Patient then returned to her room in stable condition. ACC data: AUC score 9 Start time 11:27 AM End time 11:53 AM Opening aortic pressure 143/66 LV pressurevalve not crossed Closing aortic pressure 149/72 Sedation Versed 1 mg IV IV fluid 50 cc normal saline Contrast 100 cc VISI Fluoroscopy time 8.5 minutes Radiation 849 mGy DAP [id number] cGy Right dominant system Coronary angiography: Selective injections of the right coronary artery reveal a large barnett's crook. The right coronary artery is dominant. The right coronary artery smooth in appearance widely patent and within normal limits. Selective injections of the left coronary artery reveal a 20% shelflike lesion in the mid left main trunk. There is no dampening of the catheter and good flow past the area into the left coronary arteries as well as retrograde flow back into the aorta indicating the lesion not to be hemodynamically significant. The left circumflex artery consists of 2 large marginal branches that bifurcates several times each. The left circumflex system is smooth appearance widely patent and within normal limits. The LAD gives off several large diagonal branches and a large first septal software engineer web applications. The LAD system has minor luminal irregularities but is widely patent. Summary: The patient has widely patent coronary anatomy except the left main trunk has a non-hemodynamically significant shelf like lesion with estimated stenosis to be 10-20%. The remainder of the coronary anatomy is widely patent. Recommendations: I believe the shelflike area in the left main trunk could have been a small dissection with embolization resulting in her discomfort and elevation in troponin. I do not believe that this is a hemodynamically significant lesion and I believe it may be treated medically especially in this elderly woman.
[2018-05-25] MEDS: ASPIRIN 81 MG ECTAB PO SCH (12:46)
[2018-05-25] MEDS: PANTOprazole 40 MG TAB PO SCH (12:46)
[2018-05-25] MEDS: CHOLECALCIFEROL 1,000 UNITS TAB PO SCH (12:46)
[2018-05-25] MEDS: CLOPIDOGREL BISULFATE 75 MG TAB PO SCH (12:46)
--- NOTE | 2018-05-25 16:59 | Hospitalist Progress Note ---
Date of Service May 25, 2018 Assessment & Plan (1) Chest pain: (2) LBBB (left bundle branch block): Atypical Chest Pain Non Obstructive Coronary Artery disease Hypertensive Urgency S/P Cath:Widely patent coronary anatomy except the left main trunk has a non- hemodynamically significant shelf like lesion with estimated stenosis to be 10- 20%. The remainder of the coronary anatomy is widely patent. Elevated Troponin EKG:Unchanged LBBB ECHO: EF:45-50%, Mild AR, Mild MR, TR IV heparin discontinued Medical Management Started on Aspirin Continue Plavix, statin, nitrate Hold ARB due to DELFINO No beta-claudia due to bradycardia Appreciate Cardiology Input DELFINO: Hold ARB Gentle IV fluids Avoid Nephrotoxic agents as able Monitor renal function (3) Hypertensive urgency: Missed Meds at time of admission Resume Home meds Monitor BP (4) GERD (gastroesophageal reflux disease): Continue PPI (5) History of CVA (cerebrovascular accident): Stable Chronic right upper extremity weakness Continue Aspirin, Plavix, statin (6) Depression: Continue escitalopram (7) DVT prophylaxis: SCDs for now Subjective Patient is seen and examined at bedside Doing better today Denies chest pain, SOB, dizziness, nausea Planned for Cardiac Cath today Cr slightly elevated Physical Exam Vital Signs (Past 24 Hours): Last Vital Signs Temp 37.0 C 05/25/18 15:34 Pulse 62 05/25/18 15:34 Resp 18 05/25/18 15:34 BP 171/88 H 05/25/18 15:34 Pulse Ox 96 05/25/18 15:34 Physical Exam: Physical Exam: Vitals signs as noted above General Appearance:Moderately built and nourished, no apparent distress Head: normocephalic, Atraumatic Eyes: normal inspection, EOMI Neck: supple, Trachea midline Respiratory/Chest: Normal breath sounds, CTA Cardiovascular: S1, S2, No murmur Abdomen/GI:Soft, Non tender, Bowel sounds present Extremities/Musculoskelatal:normal inspection, no edema Neurologic/Psych:AAOX3, grossly no focal neurological deficits Skin: normal color, warm Results & Data Laboratory Results Short CBC 05/25/18 Range/Units 02:36 WBC 7.42 (4.8-10.8) K/uL Hgb 11.6 L (12.0-16.0) g/dL Hct 35.2 L (37-47) % Plt Count 192 (130-400) K/uL BMP 05/25/18 02:36 Sodium 139 Potassium 4.2 D Chloride 108 H Carbon Dioxide 28 BUN 35 H Creatinine 1.45 H D Glucose 105 H Calcium 8.6 Cardiac Enzymes 05/24/18 05/24/18 05/25/18 Range/Units 17:26 20:21 02:36 Troponin I 1.060 H* 2.520 H* 5.090 H* (0-0.045) ng/ml
[2018-05-25] MEDS: ATORVASTATIN 20 MG TAB PO SCH (20:13)
[2018-05-25] MEDS: ESCITALOPRAM OXALATE 10 MG TAB PO SCH (20:13)
[2018-05-25] MEDS: ISOSORBIDE MONO EXTENDED REL 30 MG TABCR PO SCH (20:14)
[2018-05-26 07:10] LABS: Hematocrit (blood only) 34.6 % (37-47); Hemoglobin 11.6 g/dL (12.0-16.0); Mean Corpuscular Hgb Conc 33.5 g/dL (32-36); Mean Corpuscular Volume 95.1 fL (80-100); Platelet Count 165 K/uL (130-400); RDW Coefficient of Variation 12.4 % (11.5-14.5); RDW Standard Deviation 43.2 fL (36.4-46.3); Red Blood Count 3.64 M/uL (4.2-5.4); White Blood Count 5.77 K/uL (4.8-10.8)
[2018-05-26 07:47] LABS: BUN Creatinine Ratio 23.1 (10-20); Calcium 8.6 mg/dl (8.5-10.1); Creatinine Clr Calc Pharmacy 33.9 ml/min; Est GFR (African American) 57.5; Est GFR (Non-African American) 49.6; Potassium 3.9 mmol/L (3.5-5.1)
--- NOTE | 2018-05-26 09:06 | Cardiology Progress Note ---
Date of Service May 26, 2018 Assessment & Plan (1) NSTEMI (non-ST elevated myocardial infarction): The patient was admitted with a non-STEMI with the troponin peaking at 5. On presentation the patient felt that she was having GERD-like symptoms which lasted most of the night after she ate a steak sandwich before going to bed. She has had a long-standing history of GERD and reflux. She takes a PPI and understands that she cannot eat late at night and needs to either stay up or sit up until her food digest. She had a little this discomfort last night when she laid down. I do not believe that this was cardiac pain. Her cardiac catheterization yesterday actually showed impressively widely patent arteries for her age. The left main trunk however, did have a small nonhemodynamically significant shelf that may have represented a small spontaneous dissection of the plaque which then had embolization resulting in her non-STEMI. I do not think she would benefit from coronary intervention or bypass. I think medical treatment is indicated with guideline directed medication including dual antiplatelet therapy, statin and beta-claudia. I will ambulate her today and if she has a good day we could consider discharging her tomorrow. I am also going to make her Protonix twice daily. (2) Ischemic cardiomyopathy: Subjective The patient had a stable night however she states that after she laid down she got her usual GERD-like symptoms. She has had these for very long time and usually she will sit up until her food digests and the discomfort dissipates. She has had no chest pain with activity or shortness of breath. She wants to be discharged home. She states she would be more comfortable at home and her daughter will be with her. Physical Exam Vital Signs (Past 24 Hours): Last Vital Signs Temp 36.6 C 05/26/18 06:53 Pulse 74 05/26/18 06:53 Resp 18 05/26/18 06:53 BP 136/60 05/26/18 06:53 Pulse Ox 94 05/26/18 06:53 Physical Exam: General: no acute distress and stated age Head: normocephalic, no masses, lesions, tenderness or abnormalities Eyes: conjunctiva are pink and non-injected, sclera clear Neck: supple, no adenopathy, no bruits, normal jugular venous pulse, no hepatojugular reflux Chest: normal shape and normal respiratory effort Lungs: clear to auscultation and percussion Cardiac Exam: - regular rate & rhythm, no murmurs gallops or rubs - normal S1, normal S2 Pulses: 2(+) throughout Abdomen: abdomen soft, non-tender, no abnormal masses and no hepatosplenomegaly Musculoskeletal: no gait disturbance, no joint inflammation, no deforming arthritis Extremities: no edema and no cyanosis Neuro: grossly normal exam Results & Data Laboratory Results Laboratory Results - last 24 hr 05/26/18 05/26/18 06:47 06:47 WBC 5.77 RBC 3.64 L Hgb 11.6 L Hct 34.6 L MCV 95.1 MCH 31.9 MCHC 33.5 RDW Std Deviation 43.2 RDW Coeff of Lukas 12.4 Plt Count 165 MPV 10.0 Sodium 138 Potassium 3.9 Chloride 107 Carbon Dioxide 28 Anion Gap 3.0 BUN 24 H Creatinine 1.04 Est Cr Clr Drug Dosing 33.9 Est GFR ( Amer) 57.5 Est GFR (Non-Af Amer) 49.6 BUN/Creatinine Ratio 23.1 H Glucose 90 Calcium 8.6 Medications Administered Current Inpatient Medications Acetaminophen (Tylenol) 650 mg PO Q4H PRN PRN Reason: Pain or Fever Stop: 06/23/18 12:41 Aspirin (Ecotrin Ectab) 81 mg PO DAILY [facility] Stop: 06/24/18 12:14 Last Admin: 05/25/18 12:46 Dose: 81 mg Documented by: Atorvastatin Calcium (Lipitor) 20 mg PO QPM [facility] Stop: 06/23/18 20:59 Last Admin: 05/25/18 20:13 Dose: 20 mg Documented by: Clopidogrel Bisulfate (Plavix) 75 mg PO DAILY [facility] Stop: 06/23/18 12:59 Last Admin: 05/25/18 12:46 Dose: 75 mg Documented by: Escitalopram Oxalate (Lexapro) 10 mg PO QPM [facility] Stop: 06/23/18 20:59 Last Admin: 05/25/18 20:13 Dose: 10 mg Documented by: Isosorbide Mononitrate (Imdur Extended Rel) 30 mg PO QPM [facility] Stop: 06/23/18 20:59 Last Admin: 05/25/18 20:14 Dose: 30 mg Documented by: Losartan Potassium (Cozaar) 25 mg PO QAM [facility] Stop: 06/25/18 09:14 Nitroglycerin (Nitrostat) 0.4 mg SL UD PRN PRN Reason: Chest Pain Stop: 06/23/18 12:41 Pantoprazole Sodium (Protonix) 40 mg PO DAILY [facility] Stop: 06/23/18 12:59 Last Admin: 05/25/18 12:46 Dose: 40 mg Documented by: Sennosides (Senokot) 17.2 mg PO HS [facility] Stop: 06/23/18 23:29 Last Admin: 05/25/18 20:14 Dose: 17.2 mg Documented by: Vitamin D (Vitamin D3) 1,000 units PO DAILY [facility] Stop: 06/24/18 08:59 Last Admin: 05/25/18 12:46 Dose: 1,000 units Documented by:
[2018-05-26] MEDS: LOSARTAN POTASSIUM 25 MG TAB PO SCH (09:54)
[2018-05-26] MEDS: PANTOprazole 40 MG TAB PO SCH ×3 (09:54→20:55)
[2018-05-26] MEDS: CLOPIDOGREL BISULFATE 75 MG TAB PO SCH (09:55)
[2018-05-26] MEDS: ASPIRIN 81 MG ECTAB PO SCH (09:55)
[2018-05-26] MEDS: CHOLECALCIFEROL 1,000 UNITS TAB PO SCH (09:55)
[2018-05-26] MEDS ORDERED: Nursing to Pharmacy Communication ONE (11:38)
[2018-05-26] MEDS ORDERED: POLYETHYLENE (MIRALAX) 17 GM PACK PO PRN (11:40)
[2018-05-26] MEDS ORDERED: BISACODYL 10 MG SUPP PR PRN (11:40)
[2018-05-26] MEDS ORDERED: POLYETHYLENE (MIRALAX) 17 GM PACK PO ONE (11:45)
--- NOTE | 2018-05-26 16:12 | Hospitalist Progress Note ---
Date of Service May 26, 2018 Assessment & Plan (1) Chest pain: (2) LBBB (left bundle branch block): NSTEMI Hypertensive Urgency S/P Cath:Widely patent coronary anatomy except the left main trunk has a non- hemodynamically significant shelf like lesion with estimated stenosis to be 10-20%. The remainder of the coronary anatomy is widely patent. Likely small shell like lesion--Spontaneous dissection of the plaque which could have embolized causing NSTEMI Elevated Troponin EKG:Unchanged LBBB ECHO: EF:45-50%, Mild AR, Mild MR, TR IV heparin discontinued Medical Management Started on Aspirin Continue Plavix, statin, nitrate, losartan No beta-claudia due to bradycardia Appreciate Cardiology Input Continue current meds DELFINO: Resolved Received gentle IV fluids Avoid Nephrotoxic agents as able Monitor renal function (3) Hypertensive urgency: Missed Meds at time of admission BP improved Continue usual meds Monitor BP (4) GERD (gastroesophageal reflux disease): Continue PPI (5) History of CVA (cerebrovascular accident): Stable Chronic right upper extremity weakness Continue Aspirin, Plavix, statin (6) Depression: Continue escitalopram (7) DVT prophylaxis: SCDs for now Disposition: Plan to discharge home when stable Subjective Patient is seen and examined at bedside Reports GERD like symptoms overnight Also states having constipation Denies chest pain, SOB, dizziness, nausea Prefers to be discharged Physical Exam Vital Signs (Past 24 Hours): Last Vital Signs Temp 37 C 05/26/18 14:32 Pulse 63 05/26/18 14:32 Resp 18 05/26/18 14:32 BP 138/74 05/26/18 14:32 Pulse Ox 95 05/26/18 14:32 Physical Exam: Physical Exam: Vitals signs as noted above General Appearance:Moderately built and nourished, no apparent distress Head: normocephalic, Atraumatic Eyes: normal inspection, EOMI Neck: supple, Trachea midline Respiratory/Chest: Normal breath sounds, CTA Cardiovascular: S1, S2, No murmur Abdomen/GI:Soft, Non tender, Bowel sounds present Extremities/Musculoskelatal:normal inspection, no edema Neurologic/Psych:AAOX3, grossly no focal neurological deficits Skin: normal color, warm Results & Data Laboratory Results Short CBC 05/26/18 Range/Units 06:47 WBC 5.77 (4.8-10.8) K/uL Hgb 11.6 L (12.0-16.0) g/dL Hct 34.6 L (37-47) % Plt Count 165 (130-400) K/uL BMP 05/26/18 06:47 Sodium 138 Potassium 3.9 Chloride 107 Carbon Dioxide 28 BUN 24 H Creatinine 1.04 Glucose 90 Calcium 8.6
[2018-05-26] MEDS: ATORVASTATIN 20 MG TAB PO SCH (20:55)
[2018-05-26] MEDS: SENNA 8.6 MG TAB PO SCH (20:55)
[2018-05-26] MEDS: ESCITALOPRAM OXALATE 10 MG TAB PO SCH (20:55)
[2018-05-26] MEDS: ISOSORBIDE MONO EXTENDED REL 30 MG TABCR PO SCH (20:56)
[2018-05-27 06:06] LABS: Hematocrit (blood only) 32.8 % (37-47); Hemoglobin 11.1 g/dL (12.0-16.0)
[2018-05-27 06:30] LABS: BUN Creatinine Ratio 28.1 (10-20); Calcium 8.6 mg/dl (8.5-10.1); Creatinine Clr Calc Pharmacy 32.3 ml/min; Est GFR (African American) 54.4; Est GFR (Non-African American) 46.9; Potassium 3.8 mmol/L (3.5-5.1)
[2018-05-27] MEDS: CLOPIDOGREL BISULFATE 75 MG TAB PO SCH (09:37)
[2018-05-27] MEDS: CHOLECALCIFEROL 1,000 UNITS TAB PO SCH (09:37)
[2018-05-27] MEDS: PANTOprazole 40 MG TAB PO SCH (09:37)
[2018-05-27] MEDS: ASPIRIN 81 MG ECTAB PO SCH (09:37)
[2018-05-27] MEDS: LOSARTAN POTASSIUM 25 MG TAB PO SCH (09:37)
--- NOTE | 2018-05-27 11:32 | Cardiology Progress Note ---
Date of Service May 27, 2018 Assessment & Plan (1) NSTEMI (non-ST elevated myocardial infarction): Pt stable for discharge. Would recommend DC on ASA 81 mg plus plavix for medical Rx of NSTEMI. Protonix 40 mg BID. Increase prior to hospital dose of atorvastatin from 20 mg to 40 mg. Pt to return to [place] with daughter for a few weeks. Follow up with Cardiology , Dr Willis, or assiciate in 2-4 weeks depending on patient's travel schedule. Subjective CC: follow up NSTEMI Subjective: Patient feels well. Was ambulating in [place] with help of daughter. Denies any chest pain or indigestion. EKG 05/26 revealed SR with ongoing LBBB. Telemetry reveals SR in the range of 80 bpm without arrhythmia Physical Exam Vital Signs (Past 24 Hours): Last Vital Signs Temp 36.9 C 05/27/18 07:52 Pulse 79 05/27/18 07:52 Resp 18 05/27/18 07:52 BP 131/69 05/27/18 07:52 Pulse Ox 95 05/27/18 07:52 Constitutional: + thin Respiratory: normal respiratory effort, lungs clear to auscultation Cardiovascular: RRR, no murmur, no edema R fem cath access site , clean dry and intact Gastrointestinal (Abdomen): normal bowel sounds, soft, nontender, no hepatosplenomegaly Skin: no rashes, warm and dry Neurologic: R upper extremity weakness, chronic per patient
--- NOTE | 2018-05-27 12:02 | Hospitalist Progress Note ---
Date of Service May 27, 2018 Assessment & Plan (1) Chest pain: (2) LBBB (left bundle branch block): NSTEMI Hypertensive Urgency S/P Cath:Widely patent coronary anatomy except the left main trunk has a non- hemodynamically significant shelf like lesion with estimated stenosis to be 10-20%. The remainder of the coronary anatomy is widely patent. Likely small shell like lesion--Spontaneous dissection of the plaque which could have embolized causing NSTEMI Elevated Troponin EKG:Unchanged LBBB ECHO: EF:45-50%, Mild AR, Mild MR, TR IV heparin discontinued Medical Management Continue Aspirin, Plavix, statin, nitrate, losartan No beta-claudia due to bradycardia Appreciate Cardiology Input Needs follow up with Cardiology upon discharge in 2-4 weeks DELFINO: Resolved Received gentle IV fluids Avoid Nephrotoxic agents as able Monitor renal function (3) Hypertensive urgency: Missed Meds at time of admission BP stable Continue usual meds Monitor BP (4) GERD (gastroesophageal reflux disease): Continue PPI (5) History of CVA (cerebrovascular accident): Stable Chronic right upper extremity weakness Continue Aspirin, Plavix, statin (6) Depression: Continue escitalopram (7) DVT prophylaxis: SCDs for now Disposition: Plan to discharge home today Subjective Patient is seen and examined at bedside Doing better today Eager to get discharged Denies chest pain, SOB, dizziness, nausea, heart burn Family at bedside Physical Exam Vital Signs (Past 24 Hours): Last Vital Signs Temp 36.9 C 05/27/18 07:52 Pulse 79 05/27/18 07:52 Resp 18 05/27/18 07:52 BP 131/69 05/27/18 07:52 Pulse Ox 95 05/27/18 07:52 Physical Exam: Physical Exam: Vitals signs as noted above General Appearance:Moderately built and nourished, no apparent distress Head: normocephalic, Atraumatic Eyes: normal inspection, EOMI Neck: supple, Trachea midline Respiratory/Chest: Normal breath sounds, CTA Cardiovascular: S1, S2, No murmur Abdomen/GI:Soft, Non tender, Bowel sounds present Extremities/Musculoskelatal:normal inspection, no edema Neurologic/Psych:AAOX3, grossly no focal neurological deficits Skin: normal color, warm Results & Data Laboratory Results Short CBC 05/27/18 Range/Units 05:47 Hgb 11.1 L (12.0-16.0) g/dL Hct 32.8 L (37-47) % BMP 05/27/18 05:47 Sodium 139 Potassium 3.8 Chloride 107 Carbon Dioxide 29 BUN 31 H Creatinine 1.09 Glucose 95 Calcium 8.6
--- NOTE | 2018-05-27 12:15 | Discharge Summary ---
Date of Service May 27, 2018 Admission HPI Per Admitting Provider 82-year-old female who presents the ED with a chief complaint of chest pain. Patient reports her symptoms began around 1:00 this morning. Patient reports she felt as though she had indigestion. Of note, patient says she had 3 large glasses of iced tea yesterday, pizza for dinner, and a steak sandwich later in the evening. When her symptoms began, she took a dose of Protonix which did not change her symptoms. She describes the pain as being located in left side of her chest and describes the pain as a pressure type feeling. There is radiation of the pain into her left shoulder and upper arm. She reports pain was intermittent and would come and go on its own. No specific causative factors. She reports associated shortness of breath and nausea. No palpitations. She denies diaphoresis. No lightheadedness, dizziness, syncopal events. Reports she otherwise been feeling well recently. No fevers or chills. She denies abdominal pain, vomiting, diarrhea. No urinary symptoms. In the ED, patient's initial troponin is negative and EKG shows a chronic left bundle branch block. She is hypertensive with BP 192/80. She was given a dose of Tylenol. At the time my exam, patient reports she is chest pain-free. 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, strength 5/5 left upper extremity and bilateral lower extremities Skin: no rashes, warm and dry Neurologic: PERRL, EOMI, accommodation nl, no face palsy, no dysarthria Psychiatric: A+Ox3, euthymic affect Principal Diagnosis Discharge Information Discharge Diagnosis NSTEMI DELFINO Discharge Goals Decrease discomfort,Improve disease control, Improve function Discharge Activity Limitations Resume your previous activity Discharge Data Allergies Allergy/AdvReac Type Severity Reaction Status Date / Time No Known Allergies Allergy Mild Unverified 05/24/18 09:15 Consultations 05/24/18 10:38 ED Decision to Admit Stat 05/24/18 12:42 Consult Case Management - Discharge Planning Routine 05/24/18 14:57 Consult Cardiology Routine Procedures Performed Operation Date: 05/25/18 09:00 Actual Procedures p Cath, Coronaries ONLY (no LV) - Ananda Willis, DO s Cineradiography w/Routine Exam - Ananda Willis, DO CT CHest: 1. No evidence for significant pulmonary nodularity. 2. Mild scattered fibrotic and basilar atelectatic change. 3. Incidental note is made of mild gallbladder distention Cardiac Cath: Summary: The patient has widely patent coronary anatomy except the left main trunk has a non-hemodynamically significant shelf like lesion with estimated stenosis to be 10-20%. The remainder of the coronary anatomy is widely patent. Recommendations: I believe the shelflike area in the left main trunk could have been a small dissection with embolization resulting in her discomfort and elevation in troponin. I do not believe that this is a hemodynamically significant lesion and I believe it may be treated medically especially in this elderly woman. Ordered Studies 05/24/18 13:59 CT chest wo con Routine 05/25/18 08:59 CL Cath Imgs for PACS use only Routine Hospital Course (1) Chest pain: (2) LBBB (left bundle branch block): NSTEMI Hypertensive Urgency S/P Cath:Widely patent coronary anatomy except the left main trunk has a non- hemodynamically significant shelf like lesion with estimated stenosis to be 10- 20%. The remainder of the coronary anatomy is widely patent. Likely small shell like lesion--Spontaneous dissection of the plaque which could have embolized causing NSTEMI Elevated Troponin EKG:Unchanged LBBB ECHO: EF:45-50%, Mild AR, Mild MR, TR IV heparin discontinued Medical Management Continue Aspirin, Plavix, statin, nitrate, losartan No beta-claudia due to bradycardia Appreciate Cardiology Input Needs follow up with Cardiology upon discharge in 2-4 weeks DELFINO: Resolved Received gentle IV fluids Avoid Nephrotoxic agents as able Monitor renal function (3) Hypertensive urgency: Missed Meds at time of admission BP stable Continue usual meds Monitor BP (4) GERD (gastroesophageal reflux disease): Continue PPI (5) History of CVA (cerebrovascular accident): Stable Chronic right upper extremity weakness Continue Aspirin, Plavix, statin (6) Depression: Continue escitalopram (7) DVT prophylaxis: SCDs for now Disposition: Plan to discharge home today Total Time Total Time Spent Total Time Spent (In Minutes): 35 minutes Total Time Includes: Examination of the Patient, Discharge Planning, Medication Reconciliation, Communication With Other Providers and Other Discharge Plan Discharge Items Patient Disposition: Home - Self-Care Reason For Visit: CHEST PAIN Discharge Diagnosis: NSTEMI DELFINO Discharge Goals: Decrease discomfort, Improve disease control and Improve function Activity: Resume your previous activity Exercise/Sports: Gradually increase as tolerated Non-emergency contact: Primary Care Provider and Assistant Public Defender Call non-emergency contact if: you have any medication questions, your symptoms worsen, your pain is not controlled, your pain is worsening, your pain is unusual for you, your pain is concerning for you, you have a fever, your wound has increased redness, your wound has increased drainage and your wound pain has increased Follow-up/Referrals: Ghada Brooks DO [Primary Care Provider] - Diet: Heart Healthy [facility] Provider Instructions: Follow up with your PCP on June 05, 2018 at 10:55 Am Follow up with your Assistant Public Defender on June 19, 2018 at 12:45pm Seek immediate medical attention if your symptoms reoccur or worsen Home Care: * Take your medications exactly as directed. Don't skip doses. * Remember that recovery after a heart attack takes time. Plan to rest for at lease 4-8 weeks while you recover. Then return to normal activity when your doctor says it's okay. * Ask your doctor about joining a heart rehabilitation program. * Tell your doctor if you are feeling depressed. Feelings of sadness are common after a heart attack, but it is important that you speak to someone if you are feeling overwhelmed by these feelings. * If you are having chest pain, call 911 for an ambulance. Do NOT drive yourself to the hospital. * Ask your family members to learn CPR. * Learn to take your own blood pressure and pulse. Keep a record of your results. Ask your doctor when you should seek emergency medical attention. He or she will tell you which blood pressure reading is dangerous. Lifestyle Changes: * Maintain a healthy weight. Get help to lose any extra pounds. * Cut back on salt. * Limit canned, dried, packaged, and fast foods. * Don't add salt to your food. * Season foods with herbs instead of salt when you cook. * Break the smoking habit. Enroll in a stop-smoking program to improve your chances of success. * Limit fatty foods. * Ask your doctor about having your lipid levels checked regularly. * Build up your activity according to your doctor's recommendation. * Ask your doctor when it's okay to resume sexual activity. * Tell your doctor about any erectile dysfunction (ED) medication you are taking. Some ED medications are not safe if you take certain heart medications. * Try to manage stress. Follow Up: It is important for you to keep your follow up appointments with your medical provider. Prescriptions: New aspirin [Ecotrin Low Strength] 81 mg Tablet,Delayed Release (Dr/Ec) 81 mg PO DAILY 30 Days Qty: 30 RF: 3 pantoprazole 40 mg Tablet,Delayed Release (Dr/Ec) 40 mg PO BID 30 Days Qty: 60 RF: 0 atorvastatin [Lipitor] 40 mg tablet 40 mg PO HS Qty: 30 RF: 1 Continued losartan 50 mg tablet 50 mg PO DAILY RF: 0 isosorbide mononitrate 30 mg tablet extended release 24 hr 30 mg PO QPM RF: 0 clopidogrel 75 mg tablet 75 mg PO DAILY RF: 0 fexofenadine [Antoinette Allergy] 180 mg Tablet 180 mg PO DAILY PRN (Reason: Allergic Symptoms) RF: 0 escitalopram oxalate 10 mg tablet 10 mg PO QPM RF: 0 cholecalciferol (vitamin D3) [Vitamin D3] 1,000 unit Tablet 1,000 unit PO DAILY RF: 0 Flonase Sensimist 27.5 mcg/actuation [place],Suspension 1 spray INTRANASAL DAILY RF: 0 Discontinued atorvastatin 20 mg tablet 20 mg PO QPM RF: 0 pantoprazole 20 mg tablet,delayed release (DR/EC) 20 mg PO DAILY PRN (Reason: Indigestion) RF: 0 Stand-Alone Forms: [facility] Discharge Orders: Discharge Order (Routine); Ordered 05/27/18 Ordered By: Pablito Abdul Admission Data Admit Date/Time: 05/24/18 11:21 Attending Provider: Pablito Abdul Admit Provider: Daniel Reich Primary Care Provider: Ghada Brooks Other Providers: Daniel Reich ; Ananda Willis Service: Telemetry Other Interventions: Discharge Summary Assessment (RN) Last Done: 05/27/18 13:46 Pending Studies at Discharge: No DC Date/Time DO NOT enter until pt leaves facility: 05/27/18 14:00
== END 2018-05-27 14:00 | disposition home or self-care (01) ==
LOC: 2E 08:19 → ED 08:19 → 2E 12:10
PROC: CLB.CCO (~2018-05-24)
DX: F32.9 Major depressive disorder, single episode, unspecified; I44.7 Left bundle-branch block, unspecified; R79.89 Other specified abnormal findings of blood chemistry; Z79.899 Other long term (current) drug therapy; N18.3 Chronic kidney disease, stage 3 (moderate); I12.9 Hypertensive chronic kidney disease with stage 1 through stage 4 chronic kidney disease, or unspecified chronic kidney disease; I16.0 Hypertensive urgency; K21.9 Gastro-esophageal reflux disease without esophagitis; I69.359 Hemiplegia and hemiparesis following cerebral infarction affecting unspecified side; R07.9 Chest pain, unspecified